=== PATIENT | male | born 1965 | race Caucasian/White ===

== ENCOUNTER 2017-02-10 14:50 | Outpatient (CLI) | payer OTHER ==
--- NOTE | 2017-02-10 17:11 | DIAGNOSTIC IMAGING REPORT ---
PROCEDURE: US PELVIC LIMITED INDICATION: POST VOID RESIDUAL TECHNIQUE: Stanton scale and color Doppler ultrasound. COMPARISON: CT abdomen/pelvis 03/09/2015. FINDINGS: Enlarged prostate measures 4.9 x 4.1 x 3.1 cm with a 1 cm of cystic component in the midline superiorly, corresponding to the CT finding. Bilateral ureteral jets visualized. Bladder is unremarkable. Prevoid bladder volume 29 ml, postvoid volume 3 ml. IMPRESSION: 1. Enlarged prostate and median lobe 2. 3 ml postvoid residual bladder volume
== END 2017-02-10 23:00 ==
LOC: US SRH 14:50
DX: R35.1 Nocturia (principal); N40.1 Benign prostatic hyperplasia with lower urinary tract symptoms